=== PATIENT | male | born 1945 | race Caucasian/White ===

== ENCOUNTER 2021-01-04 11:00 | Outpatient (REF) | payer MEDICARE, OTHER, SELFPAY ==
--- NOTE | ~2021-01-04 | US_ITS ---
EXAMINATION: US RETROPERITONEAL LIMITED (AORTA) CLINICAL INFORMATION: Smoker. Screening. COMPARISON: Ultrasound abdominal aorta 10/12/2016. TECHNIQUE: Kirby-scale, color Doppler and spectral Doppler evaluation of the abdominal aorta. FINDINGS: The abdominal aorta is normal in caliber. The measurements of the aorta in maximum AP and transverse dimensions respectively are as follows: Proximal: 2.8 x 3.0 cm. Mid: 2.0 x 1.8 cm. Distal: 1.9 x 1.7 cm. PSV: 119 cm/s. The measurements of the common iliac arteries in maximum AP and TRV dimensions are as follows: Right: AP: 1.3 cm. TRV: 0.9 cm. Left: AP: 1.5 cm. TRV: 1.8 cm. US/US aorta IMPRESSION: Normal caliber abdominal aorta. No aneurysm is seen.
== END 2021-01-04 11:01 | disposition home or self-care (01) ==
LOC: HO.US 11:00
PROVIDERS: PCP Internal Medicine; Visit Provider Internal Medicine
DX: Z13.6 Encounter for screening for cardiovascular disorders (principal); Z87.891 Personal history of nicotine dependence
CPT/HCPCS: 76775

== ENCOUNTER 2023-11-27 11:07 | Outpatient (REF) | payer MEDICARE, OTHER, SELFPAY ==
[2023-11-27 14:22] LABS: Cholesterol 136 mg/dL (<200); HDL Cholesterol 32 mg/dL (>40); LDL Cholesterol Calculated 66 mg/dL (<100); Triglycerides 191 mg/dL (<150)
[2023-11-27 14:33] LABS: Creatinine Urine 391.25 mg/dL; Microalbum/Creatinine Ratio Ur 6.3 ug/mg cr (<30)
[2023-11-28 07:25] LABS: ~HepC Num1 0.06 S/CO (0.00-0.79); ~Hepatitis C Antibody Nonreactive (Nonreactive)
== END 2023-11-27 11:08 | disposition home or self-care (01) ==
LOC: HO.CHCLDS 11:07
PROVIDERS: Visit Provider Internal Medicine
DX: E11.9 Type 2 diabetes mellitus without complications (principal)
CPT/HCPCS: 36415; 80061; 82043; 82570; 86803